=== PATIENT | male | born 2000 | race Caucasian/White ===

== ENCOUNTER 2020-08-21 18:02 | Emergency (ER) | payer BC, SELFPAY ==
[2020-08-21 18:06] VITALS: BP 154/81; PULSE 60; RESP 15; TEMP 37; O2SAT 100; BMI 24.1
[2020-08-21 19:03] VITALS: BP 154/71; PULSE 76; RESP 20; O2SAT 99
--- NOTE | 2020-08-21 19:12 | EKG12_ITS ---
Test Reason : Blood Pressure : / mmHG Vent. Rate : 063 BPM Atrial Rate : 063 BPM P-R Int : 136 ms QRS Dur : 100 ms QT Int : 438 ms P-R-T Axes : 055 075 045 degrees QTc Int : 448 ms Normal sinus rhythm with sinus arrhythmia Nonspecific ST abnormality Abnormal ECG Confirmed by WAYNE WHITTEN, GEORGES ([id number]), primer expeditor and drier ROCK JAIN ([id number]) on 08/25/2020 10:54:27 AM Referred By: MIKE Confirmed By:KAYLA BLACK MD
--- NOTE | 2020-08-21 19:13 | ED.DCSUM_ITS ---
- ER Visit Summary Date of Service: 08/21/20 Chief Complaint: Chest pain History of Present Illness: The patient is a 19 M who presents with chest pain that has been intermittent over the past 1-1/2 weeks. Patient states it is worse with any exertion. Patient states it last approximately 15 to 20 seconds. Patient states it resolves with rest. Patient denies any nausea or vomiting. Patient denies any diaphoresis or shortness of breath. Patient denies any cough or fevers. Patient denies any lightheadedness or dizziness. Patient denies any heartburn or reflux. Patient does admit to occasional palpitations. Patient is a student at the [employer]. Patient states the physical fitness trainer told him to come to the emergency department to get an EKG. Patient denies any cardiac or PE risk factors. Physical Examination: Vital signs are stable. Patient is afebrile. Patient is in no acute distress. Oral mucosa is pink and moist. Neck is supple. Trachea is midline. There is no JVD noted. Heart was regular rate and rhythm. Lungs are clear and equal bilaterally. There is tenderness to palpation over the upper sternum. Abdomen is soft. Bowel sounds are normal. There is no tenderness. There is no rebound or guarding noted. Skin is warm dry. Cranial nerves II through XII are intact. There are no focal motor or sensory deficits noted. Extremities are intact. There is no calf tenderness or edema. Test Results: EKG was obtained. On my interpretation, there is a normal sinus rhythm with a rate of 63. There are no acute ST or T wave changes. CBC, basic metabolic profile, and troponin were obtained and were within normal limits. Po rtable 1 view chest x-ray was obtained. On my interpretation, lung hitchcock are clear. There is normal cardiac silhouette. Bony thorax is normal. There is no acute process noted. Radiologist also interpreted the x-ray and agrees. Emergency Department Course and Treatment: Patient was given aspirin here. Patient has a HEART score of 1. Patient was advised that this is low risk for acute cardiac event. Patient was instructed to take Tylenol or ibuprofen as needed for pain. Patient was instructed to follow-up with his primary care physician in 5 to 7 days. Patient understood and was agreeable with the plan. All questions were answered. Disposition: Discharge home Impression: Chest pain This note was generated with [employer] dictation software. It may contain incorrect words, spelling, and punctuation that were not noted in review of the chart prior to signing ED Disposition - Plan for ED Patient: Disposition: Home or Assisted Living Diagnosis: Chest pain Instructions: ED Chest Pain, Uncertain Cause Referrals: NOT,DEFINED [NON-STAFF] - 5-7 Days
[2020-08-21] MEDS: Aspirin 81 MG TAB.CHEW 324 MG PO (19:23)
[2020-08-21 19:25] VITALS: O2SAT 97
--- NOTE | 2020-08-21 19:30 | RAD_ITS ---
STUDY: X-RAY CHEST REASON FOR EXAM: Male, 19 years old. Chest pain for one week. TECHNIQUE: Single AP portable view of the chest. COMPARISON: None. FINDINGS: The lungs are clear and expanded. There is no demonstrated pleural abnormality. Normal size heart. Normal mediastinum and haider. Normal visualized pulmonary arteries. Normal visualized aortic arch and descending thoracic aorta. Normal visualized thoracic spine. Normal visualized ribs, clavicles, and shoulders. There is no demonstrated abnormality of the visualized soft tissue structures of the upper abdomen. RAD/Chest 1 View (Portable) IMPRESSION: Normal x-ray examination of the chest. Electronically Signed: Gab Hutton DO at 19:52 EST Tel [phone], Service support ,
[2020-08-21 19:34] LABS: Absolute Lymphocyte Count 1.76 X10^3/uL (0.83-4.51); Absolute Neutrophil Count 3.1 X10^3/uL (2.0-7.7); Basophil# 0.06 X10^3/uL; Basophil% 1.1 % (0-1); Eosinophil# 0.06 X10^3/uL; Eosinophils% 1.1 % (0-5); Hematocrit 41.2 % (40-54); Hemoglobin 12.8 g/dL (13.0-16.5); Lymphocyte # 1.76 X10^3/ul (4.0); Lymphocyte % 31.6 % (19-41); Mean Corp Hgb Conc 31.1 g/dL (32-36); Mean Corpuscular Hgb 26.5 pg (27.0-32.0); Mean Corpuscular Volume 85.3 fL (80-94); Mean Platelet Vol. 9.9 fl (6.2-12.0); Monocyte# 0.54 X10^3/uL; Monocyte% 9.7 % (0-10); NRBC Flagged by Analyzer 0 % (0-5); Neutrophil # 3.14 X10^3/uL (2.7-7.7); Neutrophil % 56.3 % (47-70); Platelet Count 289 K/mm3 (150-450); RBC Distribution Width CV 13.2 % (11.6-14.6); RBC Distribution Width SD 40.8 fl (35.1-43.9); Red Blood Count 4.83 M/mm3 (4.6-6.2); White Blood Count 5.6 K/mm3 (4.4-11.0)
[2020-08-21 20:00] VITALS: BP 147/73; PULSE 64; RESP 20; O2SAT 99
[2020-08-21 20:16] LABS: Anion Gap 5 (5-15); BUN 18 mg/dL (7-18); BUN/Creat Ratio 20.4 RATIO (10-20); Calcium,Total 9.1 mg/dL (8.5-10.1); Chloride 109 mmol/L (98-107); Creatinine, Serum 0.88 mg/dL (0.70-1.30); EST Glomerular Filtration Rate 117 mL/min (>60); Est Glom Filt Rate - Afr Amer 142 mL/min (>60); Estimated Creatinine Clearance 170.16 ml/min; Glucose 84 mg/dL (74-106); Potassium 3.5 mmol/L (3.5-5.1); Sodium Level 140 mmol/L (136-145)
[2020-08-21 21:00] VITALS: BP 139/91; PULSE 67; RESP 14; O2SAT 99
[2020-08-21 21:19] VITALS: BP 147/73; PULSE 61; RESP 15; O2SAT 99
== END 2020-08-21 21:20 | disposition home or self-care (01) ==
PROVIDERS: Emergency Provider Emergency Medicine
DX: R07.9 Chest pain, unspecified (principal); R00.2 Palpitations
CPT/HCPCS: 71045; 80048; 84484; 85025; 93005; 99284; A4216